=== PATIENT | male | born 1985 | race American Indian/Alaskan Native ===

== ENCOUNTER 2018-09-25 15:04 | Emergency (ER) | payer OTHER ==
[2018-09-25] MEDS ORDERED: NACL 0.9% 500 ML 500 ML ONE (15:23)
[2018-09-25 16:38] VITALS: BP 155/88
--- NOTE | 2018-09-25 16:52 | Emergency Department Report ---
ED General Adult HPI - General Chief complaint: Psych Stated complaint: MENTAL HEALTH Time Seen by Provider: 09/25/18 16:39 Source: patient, family, EMS (ems notes not available at time of chart dictation) Mode of arrival: Stretcher Limitations: No Limitations - History of Present Illness Initial comments: This is a 33-year-old gentleman. The patient is brought to the hospital by emergency medical services, after his mother, Miss Danette Morrison; [phone], contacted emergency medical services. Contrary to what is documented in triage nurse documentation, the patient did not attempt to commit suicide today. The patient has never attempted to commit suicide. This is corroborated by the patient and corroborated by his mother. His mother contacted 911 because she wanted him to get counseling. Apparently, the patient has been having difficulty in his current marriage. His mother is concerned that the patient's is "using him for a green card." A few days ago, and intimately over the past few months, the patient has made nonspecific comments about "not being able to handle it anymore." This is as per his mother. The patient denies suicidality, homicidality, chest pain, abdominal pain, shortness of breath, access to guns, firearms. He has a mild headache, which is throbbing, not sudden or thunderclap in nature, frontal, not maximal in intensity, not the most intense headache of his life. His mother corroborates that the patient has not articulated homicidality or suicidality within at least the past 48 hours, and she also corroborates that he does not have access to guns or firearms. The patient has no other complaints at this point in time besides mild headache. He is adamant that he does not want to , and states "I do not want to go to hell." Severity scale (0 -10): 3 Consistency: intermittent Improves with: none Worsens with: none Associated Symptoms: denies other symptoms, headaches - Related Data Allergies Allergy/AdvReac Type Severity Reaction Status Date / Time No Known Allergies Allergy Unverified 09/25/18 17:17 ED Review of Systems ROS: Stated complaint: MENTAL HEALTH Other details as noted in HPI Constitutional: denies: fever Eyes: denies: vision change ENT: denies: epistaxis Respiratory: denies: cough Cardiovascular: denies: chest pain Gastrointestinal: denies: abdominal pain Genitourinary: denies: dysuria Musculoskeletal: denies: back pain Skin: denies: lesions Neurological: headache Psychiatric: denies: anxiety, depression, auditory hallucinations, visual hallucinations, homicidal thoughts, suicidal thoughts ED Past Medical Hx - Past Medical History Hx Hypertension: Yes Hx Headaches / Migraines: Yes - Surgical History Past Surgical History?: No - Social History Smoking Status: Current Every Day Smoker Substance Use Type: Alcohol, Marijuana ED Physical Exam - General Limitations: No Limitations General appearance: alert, in no apparent distress - Head Head exam: Present: atraumatic, normocephalic - Eye Eye exam: Present: normal appearance, EOMI. Absent: nystagmus - ENT ENT exam: Present: normal exam, normal orophraynx, mucous membranes moist, normal external ear exam - Neck Neck exam: Present: normal inspection, full ROM. Absent: tenderness, meningismus - Respiratory Respiratory exam: Present: normal lung sounds bilaterally. Absent: respiratory distress, wheezes, rales, rhonchi, stridor - Cardiovascular Cardiovascular Exam: Present: regular rate, normal rhythm, normal heart sounds. Absent: bradycardia, tachycardia, irregular rhythm, systolic murmur, diastolic murmur, rubs, gallop - GI/Abdominal GI/Abdominal exam: Present: soft. Absent: distended, tenderness, guarding, rebound, rigid, pulsatile mass - Rectal Rectal exam: Present: deferred - Extremities Exam Extremities exam: Present: normal inspection, full ROM, other (2+ pulses noted in the bilateral upper, lower extremities. Compartments soft. No long bony tenderness. The pelvis is stable.). Absent: pedal edema, joint swelling, calf tenderness - Back Exam Back exam: Present: normal inspection, full ROM. Absent: tenderness, CVA tenderness (R), paraspinal tenderness, vertebral tenderness - Neurological Exam Neurological exam: Present: alert, oriented X3, CN II-XII intact, normal gait, other (Extraocular movements intact. Tongue midline. No facial droop. Facial sensation intact to light touch in the V1, V2, V3 distribution bilaterally. 5 and 5 strength in 4 extremities.. Sensation is intact to light touch in 4 extremities.). Absent: motor sensory deficit - Psychiatric Psychiatric exam: Present: normal affect, normal mood. Absent: depressed, agitated, anxious, flat affect, manic, homicidal ideation, suicidal ideation - Skin Skin exam: Present: warm, dry, intact, normal color. Absent: rash ED Course Vital Signs 09/25/18 16:00 Temperature 99 F Pulse Rate 72 Respiratory 18 Rate Blood Pressure 155/88 Blood Pressure 155/88 [Right] O2 Sat by Pulse 98 Oximetry ED Medical Decision Making - Lab Data Vital Signs 09/25/18 16:00 Temperature 99 F Pulse Rate 72 Respiratory 18 Rate Blood Pressure 155/88 Blood Pressure 155/88 [Right] O2 Sat by Pulse 98 Oximetry - Medical Decision Making Differential diagnosis, including not limited to: Mood disorder, general medical evaluation Assessment and plan: 33-year-old gentleman who is not currently homicidal or suicidal. He has a mild headache. The patient does not meet criteria for 1013. The patient is alert and oriented 3, clinically sober, and exhibits decision- making capacity. His mother in the family confirms that he has not endorsed homicidality or suicidality or evidence of psychosis today. The patient was offered an evaluation by a mental health counselor out of courtesy and convenience, but the patient declines. He is noted to be speaking on a cellular phone, using the face time application, and is not currently in any acute distress. The patient does not appear to have an emergent medical condition at this time. The patient does not appear to have an emergent psychiatric condition presently. He was counseled to return to the ER right away if and when he changes his mind, or if and when he developed any new, worsening or different symptoms. Critical care attestation.: If time is entered above; I have spent that time in minutes in the direct care of this critically ill patient, excluding procedure time. ED Disposition Clinical Impression: General medical exam Disposition: [id number] TO HOME OR SELFCARE Is pt being admited?: No Does the pt Need Aspirin: No Condition: Good Additional Instructions: Follow up with a primary care doctor, or psychiatrist, or therapist within the next month. In general, avoid consumption of alcohol, tobacco. Please return to the emergency room right away with homicidality, suicidality, depression, anxiety, new, worsening or different physical pain. For the patient's headache, the patient may take [id number] acetaminophen, ibuprofen as needed. Referrals: PRIMARY CARE, [Primary Care Provider] - 3-5 Days [facility] [Provider Group] - 3-5 Days [facility] [Outside] - 3-5 Days
== END 2018-09-25 18:30 | disposition home or self-care (01) ==
LOC: ED 15:04
DX: R51 Headache (principal); F17.200 Nicotine dependence, unspecified, uncomplicated; I10 Essential (primary) hypertension; F12.10 Cannabis abuse, uncomplicated
CPT/HCPCS: J7040